=== PATIENT | male | born 1985 | race Caucasian/White ===

== ENCOUNTER 2020-03-04 15:24 | Emergency (ER) | payer OTHER ==
[2020-03-04 15:40] VITALS: BP 145/92; PULSE 82; TEMP 99.2; BMI 27.3
--- NOTE | 2020-03-04 16:12 | PDOC ---
History of Present Illness - General Chief Complaint: Eye Problem Stated Complaint: EYE PROBLEM Time Seen by Provider: 03/04/20 15:39 History Source: Patient - History of Present Illness Timing/Duration: other Severity: moderate Past History - Psycho-Social/Smoking History Smoking History: Never smoked Information on smoking cessation initiated: No - Substance Abuse Hx (Audit-C & DAST Scrn) How often the patient has a drink containing alcohol: 2-4 times / month How often the patient has six or more drinks on one occasion: Never Score: In Men: 4 or > Positive; In Women: 3 or > Positive: 2 Screen Result (Pos requires Nsg. Audit-10AR): Negative In the last yr the pt used illegal drug/Rx for NonMed reason: No Score: Yes response is considered Positive: 0 Screen Result (Positive result requires Nsg. DAST-10): Negative Review of Systems - Review of Systems Constitutional: No: Chills, Fever *Physical Exam - Vital Signs Last Vital Signs Temp Pulse Resp BP Pulse Ox 99.2 F 82 16 145/92 100 03/04/20 15:25 03/04/20 15:25 03/04/20 15:25 03/04/20 15:25 03/04/20 15:25 - Physical Exam General Appearance: Yes: Appropriately Dressed. No: Apparent Distress HEENT: positive: Normal Voice, Other (large fluctuant external hordeolum to L upper lid, smaller non-fluctuant stys to L and R lower lid). negative: Scleral Icterus (R), Scleral Icterus (L) Respiratory/Chest: negative: Respiratory Distress Integumentary: positive: Dry, Warm Neurologic: positive: Fully Oriented, Alert, Normal Mood/Affect Medical Decision Making - Medical Decision Making 03/04/20 16:12 35 yo M, here w/ persistent sty to L upper eyelid x > 1 month despite warm soaks and top abx. At some point developed sty to L and R lower lids See exam Persistent sty despite tx Called optho, Dr Lawton, affiliated w/ [facility], who states pt can be discharged to go directly to clinic for I&D which pt agrees to Discharge - Discharge Information Problems reviewed: Yes Clinical Impression/Diagnosis: Stye external Qualifiers: Laterality: unspecified laterality Qualified Code(s): H00.019 - Hordeolum externum unspecified eye, unspecified eyelid Condition: Good Disposition: HOME - Follow up/Referral - Patient Discharge Instructions Patient Printed Discharge Instructions: Erendira Additional Instructions: Please go directly to see ophthomologist, Dr Katelyn Lawton at [facility] located at [address] [place] [id number], for treatment of sty - Post Discharge Activity
== END 2020-03-04 16:19 | disposition home or self-care (01) ==
LOC: JER 15:24
DX: H00.019 Hordeolum externum unspecified eye, unspecified eyelid (principal)
CPT/HCPCS: 99282-25